=== PATIENT | male | born 1990 | race Caucasian/White ===

== ENCOUNTER 2019-05-29 18:30 | Emergency (ER) | payer OTHER ==
[~2019-05-29] VITALS: Ht 177.8 cm; Wt 102.5 kg
[~2019-05-29 18:30] MED LIST: PEPCID20 MG PO
[2019-05-29 18:59] LABS: URINE BILIRUBIN NEGATIVE (Negative); URINE BLOOD NEGATIVE (Negative); URINE CLARITY CLEAR; URINE COLOR YELLOW; URINE GLUCOSE-RANDOM NEGATIVE (Negative); URINE KETONES NEGATIVE (Negative); URINE LEUKOCYTES NEGATIVE (Negative); URINE NITRITE NEGATIVE (Negative); URINE PROTEIN NEGATIVE (Negative); URINE UROBILINOGEN 0.2 E.U./dl (0.2-1.0)
[2019-05-29 19:05] LABS: HEMATOCRIT 45.9 % (42.0-52.0); HEMOGLOBIN 15.5 gm/dL (14.0-18.0); MCH 28.9 pg (26.0-34.0); MCHC 33.8 g/dL (28.0-37.0); MCV 85.7 fL (80.0-100.0); MPV 8.5 fl. (7.2-11.1); RBC 5.36 mil/uL (4.50-6.00); RDW-CV 13.2 % (10.5-14.5); WBC 6.6 thou/uL (4.0-11.0)
[2019-05-29 19:08] LABS: AMP/METHAMP Negative (Negative); BARBITURATES Negative (Negative); BENZODIAZEPINES Negative (Negative); COCAINE Negative (Negative); METHADONE Negative (Negative); OPIATES Negative (Negative); PCP Negative (Negative); THC POSITIVE (Negative)
[2019-05-29 19:13] LABS: CREATININE 1.1 mg/dL (0.6-1.3); POTASSIUM 4.2 mmol/L (3.5-5.1)
[2019-05-29 19:18] LABS: ALBUMIN 3.6 g/dL (3.4-5.0); TOTAL BILIRUBIN 0.3 mg/dL (<0.1-1.0); TOTAL PROTEIN 6.7 g/dL (6.4-8.2)
[2019-05-29 19:27] LABS: SALICYLATE < 2.8 mg/dL (2.8-20.0)
[2019-05-29 19:28] LABS: ACETAMINOPHEN < 2 ug/mL (10-30); ALCOHOL < 10 mg/dL (<10)
[2019-05-29 19:43] VITALS: BP 143/78
== END 2019-05-29 19:44 | disposition home or self-care (01) ==
LOC: M.ERS 18:30
PROVIDERS: Personal Emergency Response Attendant
DX: F98.8 Other specified behavioral and emotional disorders with onset usually occurring in childhood and adolescence (principal); R45.851 Suicidal ideations; K21.9 Gastro-esophageal reflux disease without esophagitis

== ENCOUNTER 2019-12-07 13:15 | Emergency (ER) | payer OTHER ==
[~2019-12-07] VITALS: Ht 177.8 cm; Wt 102.1 kg
[2019-12-07 13:36] LABS: HEMATOCRIT 43.5 % (42.0-52.0); HEMOGLOBIN 14.8 gm/dL (14.0-18.0); MCH 29.3 pg (26.0-34.0); MCHC 34.1 g/dL (28.0-37.0); MCV 86.1 fL (80.0-100.0); MPV 9.3 fl. (7.2-11.1); RBC 5.05 mil/uL (4.50-6.00); RDW-CV 13.3 % (10.5-14.5); WBC 6.1 thou/uL (4.0-11.0)
[2019-12-07 13:52] LABS: CALCIUM 8.5 mg/dL (8.5-10.1); CREATININE 0.9 mg/dL (0.6-1.3)
[2019-12-07 13:56] LABS: ALBUMIN 3.2 g/dL (3.4-5.0); TOTAL BILIRUBIN 0.2 mg/dL (<0.1-1.0); TOTAL PROTEIN 6.5 g/dL (6.4-8.2)
[2019-12-07] MEDS ORDERED: ZOFRAN ODT4 MG DISSOLVE (14:00)
[2019-12-07 14:06] VITALS: BP 133/70
== END 2019-12-07 14:07 | disposition home or self-care (01) ==
LOC: M.ERS 13:15
PROVIDERS: Emergency Medicine Emergency Medical Services
DX: R11.2 Nausea with vomiting, unspecified (principal); K21.9 Gastro-esophageal reflux disease without esophagitis; F17.210 Nicotine dependence, cigarettes, uncomplicated

== ENCOUNTER 2020-01-28 19:49 | Emergency (ER) | payer OTHER ==
[~2020-01-28] VITALS: Ht 182.9 cm; Wt 102.1 kg
[~2020-01-28 19:49] MED LIST changes: +ZOFRAN ODT4 MG DISSOLVE
[2020-01-28] MEDS ORDERED: AMOXICILLIN 50500 MG PO (20:26)
[2020-01-28] MEDS ORDERED: IBUPROFEN 800800 M1 PO (20:28)
[2020-01-28 20:39] VITALS: BP 132/78
== END 2020-01-28 20:39 | disposition home or self-care (01) ==
LOC: M.ERS 19:49
DX: S02.5XXA Fracture of tooth (traumatic), initial encounter for closed fracture (principal); K21.9 Gastro-esophageal reflux disease without esophagitis; X58.XXXA Exposure to other specified factors, initial encounter; Y93.89 Activity, other specified; Y92.89 Other specified places as the place of occurrence of the external cause; Y99.8 Other external cause status

== ENCOUNTER 2020-02-15 18:44 | Emergency (ER) | payer OTHER ==
[~2020-02-15] VITALS: Ht 182.9 cm; Wt 102.1 kg
[~2020-02-15 18:44] MED LIST changes: +AMOXICILLIN 50500 MG PO; +IBUPROFEN 800800 M1 PO
[2020-02-15] MEDS ORDERED: CLEOCIN HCL150 MG PO (19:14)
[2020-02-15] MEDS ORDERED: TYLENOL WITH CO1 TA1 PO (19:14)
[2020-02-15] MEDS ORDERED: NAPROSYN500 MG PO (19:14)
[2020-02-15 19:21] VITALS: BP 130/77
[2020-02-16] MEDS ORDERED: PENICILLIN VK500 MG PO (15:15)
== END 2020-02-15 19:21 | disposition home or self-care (01) ==
LOC: M.ERS 18:44
DX: K04.7 Periapical abscess without sinus (principal); K02.9 Dental caries, unspecified; K21.9 Gastro-esophageal reflux disease without esophagitis; Z91.030 Bee allergy status

== ENCOUNTER 2020-02-16 15:00 | Emergency (ER) | payer OTHER ==
[~2020-02-16] VITALS: Ht 182.9 cm; Wt 102.1 kg
[~2020-02-16 15:00] MED LIST changes: +CLEOCIN HCL150 MG PO; +NAPROSYN500 MG PO; +TYLENOL WITH CO1 TA1 PO
[2020-02-16] MEDS ORDERED: PENICILLIN VK500 MG PO (15:15)
[2020-02-16 15:30] VITALS: BP 142/90
== END 2020-02-16 15:30 | disposition home or self-care (01) ==
LOC: M.ERS 15:00
DX: K04.7 Periapical abscess without sinus (principal); K21.9 Gastro-esophageal reflux disease without esophagitis; F17.210 Nicotine dependence, cigarettes, uncomplicated; Z91.030 Bee allergy status; Z91.048 Other nonmedicinal substance allergy status